=== PATIENT | male | born 1950 | race Caucasian/White ===

== ENCOUNTER 2017-04-11 12:20 | Emergency (ER) | payer OTHER ==
--- NOTE | ~2017-04-11 | EKG ---
PATIENT: ROGER ROBERSON UNIT #: [id number] Ventricular Rate: 91 BPM Atrial Rate: 91 BPM P-R Interval: 146 ms QRS Duration: 100 ms Q-T Interval: 356 ms QTC Calculation(Bezet): 437 ms P [place]: 53 degrees Calculated R [place]: -38 degrees Calculated T [place]: 14 degrees Diagnosis Line: Normal sinus rhythm Diagnosis Line: Left axis deviation Diagnosis Line: Abnormal ECG Diagnosis Line: When compared with ECG of 02-MAR-2016 15:14, Diagnosis Line: No significant change was found Diagnosis Line: Confirmed by BRIDGETT PHAN MD ([id number]) on Diagnosis Line: 04/11/2017 10:12:07 PM INTERPRETING MD: NASIR
[2017-04-11 13:22] LABS: BASOPHIL# 0.1 X10e3 (0-0.3); BASOPHIL% 1.3 % (0-2.5); EOSINOPHIL# 0.8 X10e3 (0-0.7); EOSINOPHIL% 11.5 % (0.0-7.0); HEMATOCRIT 38.9 % (38.0-50.0); HEMOGLOBIN 12.9 gm/dL (13.0-16.0); LYMPHOCYTE# 1.6 X10e3 (1.0-3.5); LYMPHOCYTE% 21.7 % (17.0-45.0); MEAN CELL VOLUME 86.2 FL (83-96); MEAN CORPUSCULAR HEMOGLOBIN 28.6 PG (28-34); MEAN CORPUSCULAR HGB CONC 33.2 g/dL (30-36); MEAN PLATELET VOLUME 10.6 FL (6.5-11.5); MONOCYTE# 0.4 X10e3 (0-1.0); MONOCYTE% 5.6 % (3.0-12.0); NEUTROPHIL# 4.3 X10e3 (1.5-7.1); NEUTROPHIL% 59.9 % (40-75); PLATELET COUNT 166 X10e3 (140-420); RED BLOOD COUNT 4.51 X10e (3.90-5.60); RED CELL DISTRIBUTION WIDTH 13.8 % (11.0-15.5); WHITE BLOOD COUNT 7.3 X10e3 (4.0-10.5)
[2017-04-11 13:24] LABS: DIFF IND NO
[2017-04-11 13:46] LABS: BUN/CREATININE RATIO 20.76; CALCIUM SERUM 8.1 mg/dL (8.4-10.2); CREATININE SERUM 1.3 mg/dL (0.6-1.4); GLOM FILT RATE Estimated 56.1 mL/min (>60); POTASSIUM 4.2 mmol/L (3.5-5.1)
[2017-04-11 14:39] LABS: URINE SOURCE CLEAN CATCH
[2017-04-11 14:49] LABS: URINE APPEARANCE CLEAR; URINE BILIRUBIN NEG (NEG); URINE BLOOD NEG (NEG); URINE COLOR YELLOW; URINE GLUCOSE 250 MG/DL (NEG); URINE KETONE NEG (NEG); URINE LEUKOCYTE ESTERASE NEG (NEG); URINE NITRATE NEG (NEG); URINE PROTEIN 1+ (NEG); URINE SPECIFIC GRAVITY 1.014 (1.003-1.035); URINE UROBILINOGEN 0.2 MG/DL (NEG)
[2017-04-11 14:52] LABS: U HYALINE CASTS AUWI 0-2 /[LPF]; URINE BACTERIA AUWI NEG (NEGATIVE); URINE SQUAMOUS EPITHELIAL CELL NONE SEEN /[HPF]; UWBCS1 AUWI 0-2 (0-5)
[2017-04-11 15:03] LABS: CULTURE INDICATED? NO
== END 2017-04-11 15:52 | disposition home or self-care (01) ==
LOC: CED 12:20
PROVIDERS: Emergency Medicine
DX: E11.65 Type 2 diabetes mellitus with hyperglycemia (principal); I10 Essential (primary) hypertension; R55 Syncope and collapse; R53.1 Weakness
CPT/HCPCS: 36415; 80048; 81003; 82947; 85025; 93005; 99285